=== PATIENT | male | born 1990 | race Caucasian/White ===

== ENCOUNTER → 2021-03-27 | Emergency (ER) | payer MEDICAID ==
[~2021-03-27] VITALS: Ht 167.6 cm; Wt 99.3 kg
[2021-03-27 16:16] VITALS: BP_SYST 120
== END | disposition left against medical advice (07) ==
LOC: SED 16:00
DX: M79.672 Pain in left foot (principal); Z53.21 Procedure and treatment not carried out due to patient leaving prior to being seen by health care provider